=== PATIENT | male | born 1995 | race Caucasian/White ===

== ENCOUNTER 2025-07-12 08:21 | Emergency (ER) | payer OTHER, SELFPAY ==
[2025-07-12 08:27] VITALS: BP 173/100; PULSE 107; O2SAT 97
--- NOTE | 2025-07-12 08:27 | PC.NURSE ---
DR FITCH AT BEDSIDE
[2025-07-12 08:35] VITALS: BP 161/104
--- NOTE | 2025-07-12 08:36 | XR_ITS ---
PROCEDURE INFORMATION: Exam: XR Right Femur Exam date and time: 07/12/2025 8:42 AM Age: 30 years old Clinical indication: Injury or trauma; Fall; Blunt trauma; Lower leg; Right; Prior surgery; Surgery date: 6+ months; Surgery type: Hip pinning; Additional info: Fall, right distal femur pain TECHNIQUE: Imaging protocol: Radiologic exam of the right femur. Views: 2 views. Click tail COMPARISON: CR XR KNEE RT 2V 07/12/2025 8:42 AM FINDINGS: Bones/joints: Orthopedic screw traverses the right femoral neck. No acute fracture. No dislocation. Soft tissues: Unremarkable. IMPRESSION: No acute fracture. Postoperative changes right proximal femur.
--- NOTE | 2025-07-12 08:36 | ED_ITS ---
Discharge Plan Disposition Patient Disposition: Home, Self-Care Prescriptions Prescriptions: New methocarbamol 750 mg tablet 750 mg PO BID PRN (Reason: muscle spasm) Qty: 30 0RF No Action cefdinir 300 mg capsule 300 mg PO BID Qty: 20 0RF izmslvckczxuibz-hugbyrssm-ZF [Bromfed DM] 2-30-10 mg/5 mL syrup 5 ml PO Q4-6H PRN (Reason: cold symptoms) Qty: 118 0RF Referrals Follow up/Referrals: Ambar Rivera MD [Primary Care Provider, Medical] - See instructions Gokul Bradshaw DO [Staff Physician, Orthopedics] - See instructions Activity Restrictions/Add. Instructions Additional Instructions/Restrictions: Your x-rays and CT showed no fractures or injuries to the blood vessels. It is possible that you have an injury to one of the ligaments of your knee or thigh. I am given you referral to Dr. Bradshaw with orthopedic team. I encourage you to contact them for follow-up appointment and possible MRI. Wear the Pedro Luis bandage and avoid bearing weight on the right leg. Use the crutches when walking. You can take 1000 mg of Tylenol and 600 mg of ibuprofen every 6 hours as needed to help with pain. I have prescribed you a medication for a muscle relaxer. You can take this as prescribed. Use ice packs and heating pads on the area to help reduce swelling and pain. When resting, elevate the leg above the level of the heart to help prevent swelling. If you develop any new or worsening symptoms, or if you become concerned for your health for any reason, return to the emergency department for evaluation. Clinical Impressions Clinical Impression: Injury of knee, right Stand Alone Forms Stand Alone Forms: Work/School Release Print Language Print Language: Jordanian Discharge ED Provider: Sravan Young General Adult HPI General Chief complaint: Extremity Injury, Lower Stated complaint: WC-08- Fall-Pain and swelling R knee Time Seen by Provider: 07/12/25 08:24 History of Present Illness HPI narrative: Caleb Valverde is a 30y male with no significant past medical history who presents to the emergency department with right knee/leg pain after a fall. Patient states that at approximately 8:00 this morning, he was getting out of his truck and his left foot slipped on the ice. He states that this caused him to fall on his right knee and either hit the running board of his truck or the ground. He denies any head trauma or loss of consciousness. He states that if he locks his knee straight, he can bear weight on it but bending the knee hurts the kneecap and the distal thigh. He denies any numbness or tingling. He denies any pain elsewhere. He denies any head trauma or loss of consciousness. Related Data Previous Rx's ?Medication ?Instructions ?Recorded izdnmattjhwqnkj-anadivkzdybrkax-UG 5 ml PO Q4-6H PRN c old symptoms 06/26/25 2 mg-30 mg-10 mg/5 mL oral syrup #118 mL (Bromfed DM) cefdinir 300 mg capsule 300 mg PO BID #20 caps 06/26 methocarbamol 750 mg tablet 750 mg PO BID PRN muscle s pasm #30 07/12/25 tabs Allergies Allergy/AdvReac Type Severity Reaction Status Date / Time No Known Allergies Allergy Verified 06/26/25 10:39 [facility] Disclaimer: The information contained in this section may have been updated after the patient was seen, as this information can be updated by other users. Medical History Diarrhea Otitis media No active medical problems Social History Smoking Status: Never smoker alcohol intake: never current occupational status: employed Travel in the last 8 weeks?: None Have you lived/traveled outside [place] in past 30 days?: No Contact w/someone who lives/traveled outside US past 30 days?: No Exposure to someone with infectious disease in past 14 days?: No Do you have a fever (greater than 100.4 F or 38 C)?: No Have you tested positive for COVID-19?: No Exposed to someone with COVID-19 in past 14 days?: No Do you have a sore throat?: No Do you have a cough?: No Do you have any weakness?: No Do you have any diarrhea?: No Are you experiencing any unusual bleeding?: No Do you have any muscle aches/pain?: No Do you have any abdominal pain?: No Are you experiencing loss of taste or smell?: No ROS Obtained: Yes Systems reviewed as appropriate & no additional complaints except as documented Physical Exam General General appearance: alert Comment: Appears uncomfortable, unable to bear weight on right lower extremity without assistance Head Head exam: atraumatic Eye Eye exam: Present normal appearance ENT ENT exam: Present normal external ear exam Neck Neck exam: Present full ROM Chest Chest inspection: Present symmetric chest wall rise Respiratory Respiratory exam: Present normal lung sounds bilaterally; Absent respiratory distress Cardiovascular Cardiovascular exam: Present regular rate and normal rhythm Abdominal Exam Abdominal exam: Present soft; Absent tenderness or guarding exam: Present deferred Extremities Exam Extremities exam: Present normal inspection Expanded Lower Extremity Exam Right: Leg image: 2 1. Tenderness to palpation at the distal femur. No tenderness over the proximal tibia fibula. Some mild tenderness over the patella. Patella location seems symmetrical to the left lower extremity. 2+ DP pulses. Neuro vastly intact distally. Limited range of motion at the knee secondary to pain in the distal femur area. Back Exam Back exam: Present normal inspection Neurological Exam Neurological exam: Present alert and oriented X3 Psychiatric Psychiatric exam: Present normal affect Skin Skin exam: Present warm and dry Medical Decision Making Medical Records Screening: Per USPSTF and CDC recommendations, given the prevalence of disease in our region, it is our hospital?s policy to screen for HIV and viral Hepatitis for all patients aged 18 and over and those with ongoing risk factors. [place] Inquiry Pt receiving controlled substance: No Vital Signs: 07/12/25 08:27 07/12/25 08:35 07/12/25 08:39 Temperature 98.2 F Temperature Source Oral Pulse Rate 107 H Pulse Rate [Right] 96 H Respiratory Rate 18 Blood Pressure 173/100 H 161/104 H Blood Pressure [Right Arm] 161/104 H Blood Pressure Mean 123 Blood Pressure Mean [Right Arm] 123 Blood Pressure Source [Right Arm] Automatic Cuff Blood Pressure Position [Right Arm] Sitting 02 Sat by Pulse Oximetry 97 98 Oxygen Delivery Method Room Air Room Air 07/12/25 09:53 Temperature Temperature Source Pulse Rate 92 H Pulse Rate [Right] Respiratory Rate Blood Pressure 143/84 H Blood Pressure [Right Arm] Blood Pressure Mean Blood Pressure Mean [Right Arm] Blood Pressure Source [Right Arm] Blood Pressure Position [Right Arm] 02 Sat by Pulse Oximetry 96 Oxygen Delivery Method Room Air Orders (Tests/Meds): ED MEDICATIONS Discontinued Medications Generic Name Dose Route Start Last Admin Trade Name Freq PRN Reason Stop Dose Admin Acetaminophen 1,000 mg 07/12/25 08:36 07/12/25 08:44 Acetaminophen 500mg Tab PO 07/12/25 08:37 1,000 mg ONCE ONE Administration Ibuprofen 600 mg 07/12/25 08:36 07/12/25 08:44 Ibuprofen 600 Mg Tablet PO 07/12/25 08:37 600 mg ONCE ONE Administration Iopamidol 100 ml 07/12/25 09:48 07/12/25 09:53 Iopamidol-370 (76%);100ml Bottle IV 07/12/25 09:49 100 ml ONCE ONE Administration Iopamidol 20 ml 07/12/25 09:51 07/12/25 09:53 Iopamidol-370 (76%);100ml Bottle IV 07/12/25 09:52 20 ml ONCE ONE Administration Oxycodone HCl 5 mg 07/12/25 09:42 07/12/25 09:50 Oxycodone 5mg Immediate Release Tablet PO 07/12/25 09:43 5 mg ONCE ONE Administration Sodium Chloride 50 ml 07/12/25 09:48 07/12/25 09:52 0.9 % Sodium Chloride 50 Ml Vial IV 07/12/25 09:49 50 ml ONCE ONE Administration Sodium Chloride 10 ml 07/12/25 09:48 07/12/25 09:53 Sodium Chloride 0.9% 10ml Syr (Rad Only) IV 07/12/25 09:49 10 ml ONCE ONE Administration Sodium Chloride 50 ml 07/12/25 09:51 07/12/25 09:53 0.9 % Sodium Chloride 50 Ml Vial IV 07/12/25 09:52 50 ml ONCE ONE Administration ORDERS Category Date Time Status CT angio femur RT Stat Cat Scan 07/12/25 09:25 Completed Femur XR right 2 views [XR femur RT 2V] Stat Exams 07/12/25 08:36 Completed Knee XR right 2 views [XR knee RT 2V] Stat Exams 07/12/25 08:36 Completed Medical Decision Narrative: Caleb Valverde is a 30y male with no significant past medical history, previous surgery to bilateral hips, who presents to the emergency department with right knee/leg pain after a fall. Patient states that at approximately 8:00 this morning, he was getting out of his truck and his left foot slipped on the ice. He states that this caused him to fall on his right knee and either hit the running board of his truck or the ground. He denies any head trauma or loss of consciousness. He states that if he locks his knee straight, he can bear weight on it but bending the knee hurts the kneecap and the distal thigh. He denies any numbness or tingling. He denies any pain elsewhere. He denies any head trauma or loss of consciousness. On arrival, patient is mildly tachycardic, hypertensive blood pressure 161/104, maintaining appropriate oxygen saturation on room air. Physical exam, stated above, revealed nontoxic-appearing male who appears uncomfortable. He is unable to bear weight on the right lower extremity without significant assistance. He has tenderness over the distal femur and patella without obvious deformity. Limited range of motion at the knee with flexion secondary to pain in the distal femur. 2+ DP and PT pulses. Neuro vastly intact distally with ankle plantarflexion and dorsiflexion intact. Sensation grossly intact to the yost and foot and thigh. Differential diagnosis includes, but is not limited to: Femur fracture, patellar fracture, soft tissue injury, knee dislocation, low concern for neurovascular injury given strong DP and PT pulses. Will obtain x-ray imaging of the femur and knee. Will administer Tylenol 1000 mg and 600 mg ibuprofen orally and if unable to adequately control patient's pain, which he ranks as a 4 out of 10 currently, will consider opiate medications. X-ray imaging was interpreted by me personally. No acute fracture or dislocation. See radiology report for details. On reassessment, patient still reports fair amount of pain. Will administer 5 mg of oxycodone. Given patient's mechanism and body habitus, there is concern for dislocation injury and will obtain CT angiography of the right lower extremity to rule out popliteal injury. Patient is in agreement with this plan. CT imaging was interpreted by me personally. No vascular injury or fracture. No malalignment of the knee. See radiology report for details. On reassessment, patient remains in stable condition. Will provide him with orthopedic follow-up for possible ligamentous injury. Recommend Pedro Luis bandage and nonweightbearing on the right lower extremity. Will provide crutches to the patient. Recommend Tylenol, ibuprofen and will prescribe Robaxin. Also recommended ice packs, heating pads and elevation of the leg. Return precautions were given. All questions were answered. He demonstrated understanding and was in agreement this plan. He was then discharged from the emergency department in stable condition. Critical Care Critical Care Time Critical Care Time: No
--- NOTE | 2025-07-12 08:36 | XR_ITS ---
PROCEDURE INFORMATION: Exam: XR Right Knee Exam date and time: 07/12/2025 8:42 AM Age: 30 years old Clinical indication: Injury or trauma; Fall; Blunt trauma; Knee; Right; Additional info: Fall, pain right distal femur/knee TECHNIQUE: Imaging protocol: Radiologic exam of the right knee. Views: 1 or 2 views. AP and lateral views COMPARISON: CR XR FEMUR RT 2V 07/12/2025 8:42 AM FINDINGS: Bones/joints: No acute fracture. Small patellofemoral compartment osteophytes as well as small osteophyte along the lateral compartment of the knee. Osteophyte is evident along the posterior aspect of the knee projecting from the posterior tibia on the lateral view. No joint effusion. No dislocation. Ossified fabella incidentally noted. Chronic appearing deformity involving the inferior aspect of the patella. Soft tissues: Normal. IMPRESSION: Chronic findings are detailed above, no acute fracture.
[2025-07-12 08:39] VITALS: BP 161/104; PULSE 96; RESP 18; TEMP 36.8; O2SAT 98; BMI 48.6
--- OUTSIDE RECORDS SUMMARY | 2025-07-12 08:42 | XMS_ITS | Clinical Summary ---
Author Organization [facility] Address [address], [address] [place] [address] Care Team Providers Care Candy Puller Name Role Phone Nicole Pardo PITER - STERILISATION TECHNICIAN Primary Care Prov ider Allergies No known active allergies Medications No known medications Active Problems Problem Noted Date Diagnosed Date Weight gain 05/04/2019 Overview (05/12/2019): Gained 30 lbs since January. 24 hour recall: pork steak dinner, mac and cheese, grilled 3 chicken drumsticks, salad, cereal for breakfast (cinnamon toast crunch). Last Assessment & Plan: Getting baseline labs including sugar, cholesterol, liver and thyroid. Anxiety and depression 05/04/2019 Overview (05/12/2019): Last Assessment & Plan: Using prazosin for nightmares. Start with one pill before bed and increase by one pill per evening up to 3 pills at night if needed. Last Assessment & Plan: Referring to stress center[facility] Individual therapy [address] [place], [place] [address] Starting fluoxetine 10 mg and increase to 20 mg after one week. Call if mood is worsening. Immunizations Immunization Administration Dates Next Due TDaP, ADACEL (age 10y-64y), BOOSTRIX (age 10y+), IM, 0.5mL 05/12/2019 Family History Medical History Relation Name Comments Diabetes Father Heart Attack Father defibrillator Heart Disease Father High Blood Pressure Father High Cholesterol Father Heart Disease Maternal Grandfather [place] x 4 , guillian [place] Stroke Paternal Grandfather Heart Failure Paternal Grandmother Relation Name Status Comments Father Alive Maternal Grandfather Maternal Grandmother Alive Mother Alive Paternal Grandfather Paternal Grandmother Sister Alive Social History Tobacco Use Types Packs/Day Years Used Date Smoking Tobacco: Never Smokeless Tobacco: Current Chew Tobacco Cessation:Counseling Given: No Comments:Chews tobacco Alcohol Use Standard Drinks/Week Comments Yes 0 (1 standard drink = 0.6 oz pur e alcohol) Rare AUDIT-C Answer Date Recorded Frequency of Alcohol Consumption Monthly or less 05/12/2019 Average Number of Drinks 1 or 2 019 Frequency of Binge Drinking Not on file 04/28 Exercise Vital Sign Answer Date Recorde d Days of Exercise per Week 4 days 2018 Minutes of Exercise per Session Not on file 05/12/2019 Sex and Gender Information Value Date Recorded Sex Assigned at Not on file Legal Sex Male 12:04 AM EST Gender Identity Not on file Sexual Orientation Not on file Last Filed Vital Signs Vital Sign Reading Time Taken Comments Blood Pressure 153/83 07/03/2019 9:56 AM EST Pulse 78 07/03/2019 9:56 AM EST Temperature 36.6 C (97.9 F) 07/03/2019 9:56 AM EST Respiratory Rate 18 07/03/2019 9:56 AM EST Oxygen Saturation 98% 07/03/2019 9:56 AM EST Inhaled Oxygen Concentration - - Weight 182.9 kg (403 lb 3.2 oz) 07/03/2019 9:56 AM EST Height 193 cm (6' 4 ) 07/03/2019 9:56 AM EST Body Mass Index 49.08 07/03/2019 9:56 AM EST Plan of Treatment Not on file Insurance [employer] Care Teams Candy Puller Relationship Specialty Start Date End Date Nicole Pardo, PITER - STERILISATION TECHNICIAN PCP - General Nurse Practitioner 05/11/19
--- OUTSIDE RECORDS SUMMARY | 2025-07-12 08:43 | XMS_ITS | Clinical Summary ---
Author Organization [facility] Address [address] [place] [address] Phone Care Team Providers Care Port Steward Name Role Phone Ambar Rivera MD Primary Care Provider [phone] Allergies No known active allergies Medications * This document contains information received from the source organization and may not represent a complete record from that organization. acetaminophen (TYLENOL) 500 mg Oral Tablet Take 500 mg by mouth. Active fluticasone propionate (FLONASE NASL) by Nasal route daily. Active Active Problems Problem Noted Date Diagnosed Date Right axillary swelling 10/29/2024 Assessment & Plan (10/29/2024 9:23 AM EDT): Likely reactive lymph node from recent illnesses but will check ultrasound to determine if lymph node versus other cystic collection Attention deficit 04/24/2024 Overview (04/24/2024): Has not had formal diagnosis yet. Has had issues since childhood but his parents never had him tested. His girlfriend is noticing things at home and he also feels like tasks at work are more challenging Assessment & Plan (04/24/2024 4:32 PM EDT): Explained that I reserve stimulants for after a formal diagnosis is made. I think it is reasonable to start Strattera to see if this will help, reviewed side effects Also gave patient resources for diagnosis Chronic dyspnea 09/04/2022 Assessment & Plan (10/30/2022 8:29 AM EDT): improving after changing his diet- no caffeine or soda. limited junk food no further episodes of pneumonia Chest CT normal Assessment & Plan (09/04/2022 5:12 PM EST): presents for new problem, present for 8 months. has shortness of breath throughout the day where he feels that he cannot get a big breath in. no signs of HF, no hx of asthma as a kid, does not feel like it is high in the neck for vocal cord dysfunction. no work exposures he thinks it could be some anxiety, it does not always happen if he is distracted. -does have 2 episodes of pneumonia in 2 years, will check CT chest to eval anatomic cause for this sensation -also starting wellbutrin 150mg daily to see if treating anxiety could help? he does not think he is an anxious person but is willing to try Obesity, Class III, BMI 40-49.9 (morbid obesity) 01/25/2022 Assessment & Plan (04/24/2024 4:33 PM EDT): - Weight is down 6 pounds from last visit, his weight really just changes based on the type of job he is doing and if he is very physically active or if he is bored so that eat more Thankfully labs showed no diabetes Lipids improved Assessment & Plan (10/11/2023 5:26 PM EDT): - Patient has lost a few pounds since he is started watching what he ate a few weeks ago Weight is still up 20 pounds since our last visit He is going to get back into the gym and really focus on food intake Assessment & Plan (04/19/2023 8:59 AM EDT): - Discussed with patient that his weight is up 20 pounds since our last visit 5 months ago He is aware this is mostly from poor food choices He is motivated to focus on improving weight Assessment & Plan (09/04/2022 5:08 PM EST): - pt uses a CPAP machine nightly. has not noticed a difference with his current SOB Assessment & Plan (01/25/2022 10:39 AM EDT): Goals: - lose 10 pounds in 3 months (4 pounds the first month and 3 pounds the next two months) Advice: - low carb diet Acute midline low back pain without sciatica 01/2020 Overview (08/28/2022): Last Assessment & Plan: Images from the original note were not included. Ok to follow up with chiropractor. Call if fever, pain radiating to lower extremities, numbness/tingling/weakness, bowel or bladder incontinence. Your back pain may be due to lack of stabilization from your core muscles. These exercises can help. Cut and paste into your browser: [email or web address]/[email or web address]-ncy-mkglqvqyw/[email or web address]/expert-[email or web address]/ [email or web address]-manlokqkt-md-wfl-jq-mbau-weckq-inni-geyxjuqx-program/ You should also take a break from sitting by getting up and stretching or walking every 1/2 to 1 hour. Keep your hamstrings loose by doing stretches. Use a step and bend at the hip not at the back Anxiety and depression 05/04/2019 Assessment & Plan (04/19/2023 8:59 AM EDT): Patient stopped Wellbutrin 2 weeks ago and has been feeling well without it. Discussed that we can always restart if needed Assessment & Plan (10/30/2022 8:28 AM EDT): increaseing wellbutrin to 300mg daily. got some benefit initially then less of an effect Nightmares 05/04/2019 Overview (08/28/2022): Last Assessment & Plan: Using prazosin for nightmares. Start with one pill before bed and increase by one pill per evening up to 3 pills at night if needed. 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 Eating: Most people need to increase plant-based, whole foods in their diet and eat less things like meat, sugar, refined carbohydrates. The richard below is free and is from a non-profit, evidence-based organization. Go to settings and make 21 tweaks visible for weight loss ideas. Ok to skip the trendelenburg position idea. Weight gain 05/04/2019 04/19/2023 Overview (08/28/2022): Gained 30 lbs since January. 24 hour recall: pork steak dinner, mac and cheese, grilled 3 chicken drumsticks, salad, cereal for breakfast (cinnamon toast crunch). Last Assessment & Plan: Getting baseline labs including sugar, cholesterol, liver and thyroid. Immunizations Immunization Administration Dates Next Due DTP/HiB 10/20/1996,02/14/1996,1995 Hepatitis B, Ped/Adol 02/14/1996 MMR 01/21/1997 OPV-Trivalent 10/20/1996,02/14/1996,1995 Pfizer SARS-CoV-2 Vaccine 12 + Yrs (Purple Cap) 11/16/2020,10/29/2020 Tdap 05/12/2019 Surgical History Surgery Date Site/Laterality Comments TONSILLECTOMY Social History Tobacco Use Types Packs/Day Years Used Date Smoking Tobacco: Never Smokeless Tobacco: Current Chew Tobacco Cessation:Ready to Q uit: Not Asked; Counseling Given: Not Answered Alcohol Use Standard Drinks/Week Comments No 0 (1 standard drink = 0.6 oz pur e alcohol) PHQ-2 Answer Date Recorded PHQ-2 Total Score 0 04/24/2024 Sexually Active Control Partners Comments Not Currently Sex and Gender Information Value Date Recorded Sex Assigned at Not on file Legal Sex Male 9:21 PM EDT Gender Identity Not on file Sexual Orientation Not on file Last Filed Vital Signs Vital Sign Reading Time Taken Comments Blood Pressure 132/84 10/29/2024 9:04 AM EDT Pulse 66 10/29/2024 9:04 AM EDT Temperature 36.8 C (98.3 F) 10/29/2024 9:04 AM EDT Respiratory Rate 18 10/29/2024 9:04 AM EDT Oxygen Saturation 98% 10/29/2024 9:04 AM EDT Inhaled Oxygen Concentration - - Weight 175.5 kg (387 lb) 10/30/2024 9:19 AM EDT Height 193 cm (6' 4 ) 10/30/2024 9:19 AM EDT Body Mass Index 47.11 10/30/2024 9:19 AM EDT Plan of Treatment Health Maintenance Due Date Last Done Comments Hepatitis B Vaccine (2 of 3 - 3-dose series) 03/13/1996 02/14/1996 COVID-19 Vaccine (3 - season) 2025 11/16/2020, 10/29/2020 Influenza Vaccine (#1) 2025 Annual Wellness Exam 04/24/2025 04/24/2024 DTaP/TDaP/Td (5 - Td or Tdap) 05/12/2029 05/12/2019, 10/20/1996, 02/14/1996, Additional history exists Meningococcal B Vaccine Aged Out No l onger eligible based on patient's age to complete this topic Pneumococcal Vaccine 0-49 Aged Out No longer eligible based on patient's age to complete this topic Goals Goal Patient Goal Type Associated Problems Recent Progress Patient-Stated? 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
[2025-07-12] MEDS: ACETAMINOPHEN 500MG TAB 1000 MG PO (08:44)
[2025-07-12] MEDS: IBUPROFEN 600 MG TABLET PO (08:44)
--- NOTE | 2025-07-12 09:25 | CT_ITS ---
PROCEDURE INFORMATION: Exam: CTA Right Lower Extremity With Contrast Exam date and time: 07/12/2025 9:43 AM Age: 30 years old Clinical indication: Injury or trauma; Fall; Blunt trauma; Knee; Left; Additional info: Possible polpiteal injury TECHNIQUE: Imaging protocol: Computed tomographic angiography of the right lower extremity with contrast. 3D rendering (Not supervised by radiologist): MIP and/or 3D reconstructed images were created by the technologist. Radiation optimization: All CT scans at this facility use at least one of these dose optimization techniques: automated exposure control; mA and/or kV adjustment per patient size (includes targeted exams where dose is matched to clinical indication); or iterative reconstruction. Contrast material: ISO 370; Contrast volume: 120 ml; Contrast route: INTRAVENOUS (IV); COMPARISON: CR XR FEMUR RT 2V 07/12/2025 8:42 AM FINDINGS: Right iliac arteries: Right common iliac artery, external iliac artery, common femoral, superficial femoral, and popliteal artery are all patent. No atherosclerosis. No luminal narrowing, flap or dissection, or pseudoaneurysm. Right femoral/popliteal arteries: See Right iliac arteries finding. Right infrapopliteal arteries: No occlusion or significant stenosis. Bones/joints: Retrograde screw in the proximal right femoral head/neck, without evidence of hardware complication. No acute fracture or malalignment in the right femur or imaged tibia and fibula. Mild degenerative change in the right knee. Mild thickening of the MPFL and lateral patellofemoral ligaments, suggestive of sprain. Soft tissues: [id number] prepatellar soft tissue contusion. IMPRESSION: 1. No acute fracture or malalignment in the imaged right lower leg. 2. No acute vascular abnormality.
[2025-07-12] MEDS: OXYCODONE 5MG IMMEDIATE RELEASE TABLET 5 MG PO (09:50)
[2025-07-12] MEDS: 0.9 % SODIUM CHLORIDE 50 ML VIAL IV ×2 (09:52→09:53)
[2025-07-12 09:53] VITALS: BP 143/84; PULSE 92; O2SAT 96
[2025-07-12] MEDS: IOPAMIDOL-370 (76%);100ML BOTTLE 100 ML IV (09:53)
[2025-07-12] MEDS: SODIUM CHLORIDE 0.9% 10ML SYR (RAD ONLY) 10 ML IV (09:53)
[2025-07-12] MEDS: IOPAMIDOL-370 (76%);100ML BOTTLE 20 ML IV (09:53)
--- NOTE | 2025-07-12 10:32 | PC.NURSE ---
provider to bedside discussing results
[2025-07-12 11:13] VITALS: BP 138/78; PULSE 70; RESP 18; TEMP 36.8; O2SAT 98
== END 2025-07-12 11:14 | disposition home or self-care (01) ==
PROVIDERS: Emergency Provider Student in an Organized Health Care Education/Training Program; PCP Student in an Organized Health Care Education/Training Program
DX: S89.91XA Unspecified injury of right lower leg, initial encounter (principal); M25.561 Pain in right knee; W00.9XXA Unspecified fall due to ice and snow, initial encounter
CPT/HCPCS: 73552; 73560; 73706; 99284; 99285; Q9967